=== PATIENT | female | born 1990 | race Caucasian/White ===

== ENCOUNTER 2018-12-05 18:00 | Emergency (ER) | payer OTHER ==
[~2018-12-05] VITALS: Ht 154.9 cm; Wt 55.8 kg
[2018-12-05] MEDS ORDERED: ELITE-OB 400 C1 EACH (18:22)
== END 2018-12-05 21:03 | disposition home or self-care (01) ==
LOC: ER 18:00 → EDBD 18:20 → ER 18:20
DX: R21 Rash and other nonspecific skin eruption (principal)

== ENCOUNTER → 2019-02-17 | Outpatient (CLI) | payer OTHER ==
[~2019-02-17] MED LIST: ELITE-OB 400 C1 EACH
== END | disposition home or self-care (01) ==
LOC: PRENATAL 10:28
DX: O28.1 Abnormal biochemical finding on antenatal screening of mother (principal); O99.89 Other specified diseases and conditions complicating pregnancy, childbirth and the puerperium; O35.3XX1 Maternal care for (suspected) damage to fetus from viral disease in mother, fetus 1

== ENCOUNTER 2019-04-03 12:55 | Outpatient (CLI) | payer OTHER | END 2019-04-04 10:46 | disposition home or self-care (01) | LOC: OBS/DEL 12:55 | DX: O60.02 Preterm labor without delivery, second trimester (principal); O26.892 Other specified pregnancy related conditions, second trimester; R10.2 Pelvic and perineal pain; O26.842 Uterine size-date discrepancy, second trimester ==

== ENCOUNTER 2019-05-26 16:25 | Outpatient (CLI) | payer OTHER | END 2019-05-27 12:59 | disposition home or self-care (01) | LOC: OBS/DEL 16:25 | DX: O26.893 Other specified pregnancy related conditions, third trimester (principal); R10.2 Pelvic and perineal pain; O35.8XX0 Maternal care for other (suspected) fetal abnormality and damage, not applicable or unspecified; O60.03 Preterm labor without delivery, third trimester; O23.43 Unspecified infection of urinary tract in pregnancy, third trimester ==

== ENCOUNTER 2019-06-27 14:45 | Inpatient (IN) | payer OTHER ==
[~2019-06-27] VITALS: Ht 154.9 cm; Wt 68.0 kg
== END 2019-07-09 16:00 | disposition home or self-care (01) | DRG 807 ==
LOC: OB/GYN 07-07 07:49 → LDR 07-07 07:49 → OB/GYN 07-07 14:45
PROVIDERS: ADMIT Obstetrics & Gynecology
PROC: 10E0XZZ Delivery of Products of Conception, External Approach (ICD-10-PCS; principal; 2019-07-07)
PROC: 10907ZC Drainage of Amniotic Fluid, Therapeutic from Products of Conception, Via Natural or Artificial Opening (ICD-10-PCS; 2019-07-07)
PROC: 0W8NXZZ Division of Female Perineum, External Approach (ICD-10-PCS; 2019-07-07)
PROC: 4A1HXCZ Monitoring of Products of Conception, Cardiac Rate, External Approach (ICD-10-PCS; 2019-07-07)
DX: O80 Encounter for full-term uncomplicated delivery (principal); Z37.0 Single live birth; Z3A.38 38 weeks gestation of pregnancy

== ENCOUNTER 2019-07-06 16:56 | Outpatient (CLI) | payer OTHER | END 2019-07-07 08:15 | disposition still patient (30) | LOC: OBS/DEL 16:56 | DX: O47.1 False labor at or after 37 completed weeks of gestation (principal) ==

== ENCOUNTER 2021-10-03 13:30 | Inpatient (IN) | payer OTHER ==
[~2021-10-03] VITALS: Ht 154.9 cm; Wt 70.3 kg
== END 2021-10-10 12:30 | disposition home or self-care (01) | DRG 807 ==
LOC: LDR 10-08 04:00 → OB/GYN 10-08 04:00
PROVIDERS: ADMIT Obstetrics & Gynecology; ATTEND Obstetrics & Gynecology
PROC: 10E0XZZ Delivery of Products of Conception, External Approach (ICD-10-PCS; principal; 2021-10-08)
PROC: 0HQ9XZZ Repair Perineum Skin, External Approach (ICD-10-PCS; 2021-10-08)
PROC: 4A1HXCZ Monitoring of Products of Conception, Cardiac Rate, External Approach (ICD-10-PCS; 2021-10-08)
DX: O70.1 Second degree perineal laceration during delivery (principal); Z37.0 Single live birth; Z3A.39 39 weeks gestation of pregnancy; Z20.822 Contact with and (suspected) exposure to COVID-19